=== PATIENT | female | born 1995 | race Caucasian/White ===

== ENCOUNTER 2021-11-22 12:47 | Emergency (ER) | payer OTHER, SELFPAY ==
[2021-11-22 13:20] VITALS: BP 130/79; PULSE 88; RESP 19; TEMP 37.3; O2SAT 100; BMI 25.8
[2021-11-22 13:41] LABS: Adenovirus,PCR Not Detected (NotDetected); Bordetella Pertussis Not Detected (NotDetected); Chlamydophila Pneumoniae, PCR Not Detected (NotDetected); Coronavirus 229E Not Detected (NotDetected); Coronavirus NL63 Not Detected (NotDetected); Coronavirus OC43 Not Detected (NotDetected); Coronovirus HKU1,PCR Not Detected (NotDetected); Human Metapneumovirus Not Detected (NotDetected); Influenza A, PCR Not Detected (NotDetected); Influenza AH1, 2009 Not Detected (NotDetected); Influenza AH1, PCR Not Detected (NotDetected); Influenza AH3,PCR Not Detected (NotDetected); Influenza B, PCR Not Detected (NotDetected); Mycoplasma Pneumoniae, PCR Not Detected (NotDetected); Parainfluenza 1, PCR Not Detected (NotDetected); Parainfluenza 2, PCR Not Detected (NotDetected); Parainfluenza 3, PCR Not Detected (NotDetected); Parainfluenza 4, PCR Not Detected (NotDetected); Respiratory Syncytial Virus Not Detected (NotDetected); Rhinovirus/Enterovirus Not Detected (NotDetected)
--- NOTE | 2021-11-22 13:46 | HMH.EDUTC ---
[facility] [place] Clinical Impression: Viral syndrome Disposition: Home, Self-Care Condition on Discharge: Good Instructions: DI for Viral Syndrome, DI for COVID-19 (Suspected or Confirmed ), Preventing the Spread of Coronavirus Discharge Instructions Additional Instructions: *Monitor Temp, Over the counter Motrin or Tylenol as directed/as needed Tylenol every 4 hours and Motrin every 6 hours (as long as your family doctor has told you that you can take it) for fever or pain. and straight to ER if unable to lower temp less than 101.0 after medication given *Warm salt water gargles may help to soothe the throat *Throat Lozenges *Warm fluids like tea with honey may help to soothe the throat *Sleep elevated *Humidifier/Vaporizer Follow up IMMEDIATELY for new or worsening symptoms or no Noticeable improvement over the next 48-72 hours. 911 for difficulty breathing or swallowing You were tested for today for COVID19 your test result should be back in the next 24-48 hours, you may check your results on the [facility] [place] [facility] Make sure to take your Vitamins Vit. C Vit D and Zinc if you can take them Referrals: Provider,Referral, [Primary Care Provider] - As needed Forms: Work/School Release Medical Decision Making - Patrick Inquiry Pt receiving controlled substance: No Patrick was queried for this patient: No Vital Signs: 11/22/21 13:20 Temperature 99.1 F Temperature Source Oral Pulse Rate [Right Brachial] 88 Respiratory Rate 19 Blood Pressure [Right Arm] 130/79 Blood Pressure Mean [Right Arm] 96 Blood Pressure Source [Right Arm] Automatic Cuff Blood Pressure Position [Right Arm] Sitting 02 Sat by Pulse Oximetry 100 Oxygen Delivery Method Room Air Orders (Tests/Meds): ED MEDICATIONS Discontinued Medications Generic Name Dose Route Start Last Admin Trade Name Freq PRN Reason Stop Dose Admin Acetaminophen 650 mg 11/22/21 13:58 Acetaminophen 325mg Tab PO 11/22/21 13:59 ONCE ONE ORDERS Category Date Time Status Full Resp Panel w/COVID ([facility]) Routine Lab 11/22/21 13:35 [place] [facility] [place] - General Stated complaint: FORBES, weakness, chills Time Seen by Provider: 11/22/21 13:47 Mode of Arrival: Ambulatory Source of Information: Patient Limitations: No Limitations Description of Symptoms (Recalled from Triage Doc. by RN): PATIENT C/O HEADACHE AND WEAKNESS SINCE THIS MORNING HEENT Symptoms (Recalled from RN notes): Yes Resp Symptoms (Recalled from RN notes): No Skin Symptoms (Recalled from RN notes): No MS Symptoms (Recalled from RN notes): No Functional Status (Recalled from RN notes): WNL - History of Present Illness Provider Complaint: Patient states that was recently around someone that was positive for COVID states that today she has been having headache, body aches, chills and feeling tired and achy so she came in to get tested - Related Data Previous Rx's Medication Instructions Recorded levonorgestrel-ethinyl estradiol 1 tab PO DAILY #84 tab 04/19/21 0.1 mg-20 mcg tablet Allergies Allergy/AdvReac Type Severity Reaction Status Date / Time No Known Allergies Allergy Verified 04/19/21 15:57 - Worker's Comp Is this a Worker's Comp case?: No [facility] History - Hepatitis A Screen Attestation statement:: This patient has been screened for Hepatitis A risk factors. I have reviewed the patient's past medical history: Yes Amputation: No Fractures: No Comment: wisdom teeth - Social History Smoking Status: Never smoker Alcohol Intake: never Alcohol Intake Frequency:: holidays/special occasions only Substance Use Type: denies use Occupational Status: other Family Hx:: No significant family history ROS Obtained: Yes All systems reviewed & no additional complaints, Yes Systems reviewed as appropriate & no additional complaints - Constitutional Constitutional: Reports system reviewed and no additional complaints, except as docu, Reports body ache, Reports
[2021-11-22 14:02] VITALS: BP 130/79; PULSE 88; RESP 19; TEMP 37.3; O2SAT 100
[2021-11-22 15:04] LABS: Coronavirus 19, PCR Detected (NotDetected)
== END 2021-11-22 14:05 | disposition home or self-care (01) ==
PROVIDERS: Emergency Provider Nurse Practitioner
DX: U07.1 COVID-19 (principal); R51.9 Headache, unspecified; R53.1 Weakness; R50.9 Fever, unspecified
CPT/HCPCS: 87581; 87632; 87798; 99212; C9803; G0463; U0003; U0005

== ENCOUNTER 2023-07-09 07:40 | Outpatient (CLI) | payer OTHER, SELFPAY ==
[2023-07-09 09:18] LABS: HCG,Quantitative 4651 mIU/ml (0-5.42)
[2023-07-10 08:21] LABS: Progesterone 16.6 ng/mL (.)
== END 2023-07-09 23:59 ==
PROVIDERS: Visit Provider Obstetrics & Gynecology
DX: Z32.00 Encounter for pregnancy test, result unknown (principal)
CPT/HCPCS: 36415; 84144; 84702

== ENCOUNTER 2023-08-01 17:12 | Outpatient (CLI) | payer OTHER, SELFPAY | END 2023-08-01 23:59 | LOC: LAB.DROPOF 17:12 | PROVIDERS: PCP Obstetrics & Gynecology; Visit Provider Obstetrics & Gynecology | DX: O26.891 Other specified pregnancy related conditions, first trimester (principal); Z3A.08 8 weeks gestation of pregnancy | CPT/HCPCS: 87086 ==

== ENCOUNTER 2023-08-09 08:39 | Outpatient (CLI) | payer OTHER, SELFPAY ==
[2023-08-09 10:39] LABS: Basophils # 0.1 K/mm3 (0-0.2); Basophils % 0.6 % (0.1-2.0); Eosinophils # 0.5 K/mm3 (0.0-0.4); Hematocrit 39.2 % (37.0-47.0); Hemoglobin 12.8 g/dL (12.2-16.2); Lymphocytes # 1.6 K/mm3 (0.7-4.5); Mean Corpuscular HGB Conc 32.7 g/dL (31.8-35.4); Mean Corpuscular Hemoglobin 31.7 pg (27.0-31.2); Mean Corpuscular Volume 96.7 fl (81-99); Mean Platelet Volume 8.7 fl (7.4-10.4); Monocytes # 0.5 K/mm3 (0.1-1.0); Monocytes % 4.5 % (1.7-9.3); Neutrophils # 7.8 K/mm3 (1.8-7.8); Neutrophils % 74.9 % (37.0-80.0); Platelet Count 267 K/mm3 (142-424); Red Blood Count 4.06 M/mm3 (4.20-5.40); Red Cell Distribution Width 13.4 % (11.5-17.5); White Blood Count 10.4 K/mm3 (4.8-10.8)
[2023-08-10 07:13] LABS: Rubella Antibodies, IgG 2.31 index (Immune >0.99)
[2023-08-10 14:59] LABS: Rapid Plasma Reagin Ab Titer Non Reactive titer (NonRea<1:1)
[2023-08-11 12:45] LABS: HIV Screen 4th Generation wRfx Non Reactive; Hepatitis B Surface Antigen Negative; Hepatitis C Antibody Non Reactive
== END 2023-08-09 23:59 ==
LOC: LAB 08:40
PROVIDERS: Visit Provider Obstetrics & Gynecology
DX: O26.891 Other specified pregnancy related conditions, first trimester (principal); Z3A.09 9 weeks gestation of pregnancy
CPT/HCPCS: 36415; 85025; 86593; 86703; 86762; 86850; 87340; 87380; G0432

== ENCOUNTER 2023-10-26 07:19 | Outpatient (CLI) | payer OTHER, SELFPAY ==
--- NOTE | 2023-10-26 07:20 | US_ITS ---
PROCEDURE: US OB /MATERNAL DETAIL CLINICAL INDICATION: US OB Complete-20wk+Anatomy Scan COMPARISON: No exams were available for comparison FINDINGS: Transabdominal sonographic images of the pelvis were obtained. From her established due date she is . Single viable intrauterine gestation. Initially breech position then turned to cephalic. Placenta: Posteriorplacenta grade 1. There is an average amount of fluid. The cervix appears satisfactory. Closed and measuring 3.11 cm in length. Complete survey performed and was unremarkable on the submitted images as in PACS. No discrete anomalies identified on survey imaging by technologist. Active fetus. Three-vessel cord with satisfactory umbilical cord insertion. 4- chamber heart noted. Situs, aortic arch, LVOT, RVOT, three-vessel view appear normal. Survey of brain & ventricles Unremarkable. Cerebellum, thalamus, choroid plexus, cisterna magna appear normal. There is a 0.82 cm choroid plexus cyst. Face and neck survey unremarkable. Profile, nasion, lips and nose appeared normal. Diaphragm and chest views unremarkable. Abdomen: Both kidneys noted . There is bilateral renal pelvis dilation. Left greater than right. Left measures 4.14 mm. Stomach and bladder noted and satisfactory. Spine: Survey of the spine satisfactory with no anomalies identified nor imaged. Cervical, thoracic, lower spine appear normal. Both arms and legs noted. Amniotic Fluid: Adequate. Measurements: Average ultrasound age 20weeks 6days. Estimated due date by ultrasound age 1003/08/2024. Estimated weight 388g BPD = 20weeks 3days HC = 20weeks 3days AC = 21weeks 1day FL = 21weeks 1day Growth Percentile= 58 Heart Rate = 150bpm Cerebellum = 20weeks 2days Humerus = 21weeks 1day HC/AC is 1.13 FL/BPD is 0.74 FL/AC is 0.22 IMPRESSION: 1. Viable fetus in the cephalic presentation with a posterior placenta grade 1. 2. The fluid is within normal limits. 3. There is an 8.2 mm choroid plexus cyst. 4. There is bilateral renal pelvis dilation with left greater than right. Left pelvis measures 4.14 mm. 5. The rest of the anatomical scan appears normal. 6. biometry is consistent with the dates. 7. Suggest maternal medicine consult. Dictated by: Armando Servin MD 10/26/2023 08:52 Armando Servin MD in [place] 10/26/2023 08:52
== END 2023-10-26 23:59 | disposition home or self-care (01) ==
LOC: RAD 07:20
PROVIDERS: PCP Obstetrics & Gynecology; Visit Provider Obstetrics & Gynecology
DX: Z36.3 Encounter for antenatal screening for malformations (principal); Z3A.20 20 weeks gestation of pregnancy; Z34.92 Encounter for supervision of normal pregnancy, unspecified, second trimester
CPT/HCPCS: 76811

== ENCOUNTER 2023-12-13 08:28 | Outpatient (CLI) | payer OTHER, SELFPAY ==
[2023-12-13 08:58] LABS: Basophils % 0.2 % (0.1-2.0); Eosinophils # 0.5 K/mm3 (0.0-0.4); Eosinophils % 3.6 % (0.1-12.0); Hematocrit 34.5 % (37.0-47.0); Hemoglobin 11.9 g/dL (12.2-16.2); Lymphocytes # 1.8 K/mm3 (0.7-4.5); Lymphocytes % 12.7 % (10-50); Mean Corpuscular HGB Conc 34.6 g/dL (31.8-35.4); Mean Corpuscular Hemoglobin 32.6 pg (27.0-31.2); Mean Corpuscular Volume 94.2 fl (81-99); Mean Platelet Volume 8.6 fl (7.4-10.4); Monocytes # 0.7 K/mm3 (0.1-1.0); Neutrophils # 10.8 K/mm3 (1.8-7.8); Neutrophils % 78.4 % (37.0-80.0); Platelet Count 276 K/mm3 (142-424); Red Blood Count 3.66 M/mm3 (4.20-5.40); Red Cell Distribution Width 14.2 % (11.5-17.5); White Blood Count 13.8 K/mm3 (4.8-10.8)
[2023-12-13 09:03] LABS: Glucose,Fasting 90 mg/dl (74-100)
[2023-12-13 11:20] LABS: Glucose 1 Hour 77 mg/dL (74-100)
== END 2023-12-13 23:59 | disposition home or self-care (01) ==
LOC: LAB 08:29
PROVIDERS: Visit Provider Obstetrics & Gynecology
DX: Z34.93 Encounter for supervision of normal pregnancy, unspecified, third trimester (principal); Z3A.28 28 weeks gestation of pregnancy
CPT/HCPCS: 36415; 82951; 85025

== ENCOUNTER 2024-01-25 22:48 | Emergency (ER) | payer OTHER, SELFPAY ==
[2024-01-25 22:51] VITALS: BP 132/81; PULSE 141; RESP 19; TEMP 37.5; O2SAT 98; BMI 29.6
--- NOTE | 2024-01-25 23:04 | ECG_ITS ---
APPROVED REPORT Exam: Resting ECG HR:134 bpm ECG Measurements Heart Rate 134 AXES [place] 132 P 56 QRSd 86 QRS 27 QT 331 T 34 QTc 410 Conclusion SINUS TACHYCARDIA NONSPECIFIC T-WAVE ABNORMALITY ABNORMAL RHYTHM ECG Isolated Q wave and T wave inversion in lead III, no reciprocal changes, no STEMI Electronically signed by : CHIP MANSFIELD, 01/26/2024 06:47:26
--- NOTE | 2024-01-25 23:05 | ED_ITS ---
Discharge Plan Disposition Patient Disposition: Home, Self-Care Condition: Fair Prescriptions Prescriptions: No Action Classic 28 mg iron- 800 mcg tablet PO DAILY Referrals Follow up/Referrals: Provider,Referral, [Primary Care Provider] - See instructions Activity Restrictions/Add. Instructions Additional Instructions/Restrictions: Drink plenty of water, if you develop fevers you can take Tylenol. Monitor your symptoms and movement closely. If you have any changes or any worsening, immediately return to the ER. Call Dr. Hsieh's office first thing Sunday morning for a follow-up appointment. Do not hesitate to return to the ER with any new, worsening, or otherwise concerning symptoms. Clinical Impressions Clinical Impression: Shortness of breath during , Tachycardia, COVID-19 affecting in third trimester Print Language Print Language: Croatian Discharge ED Provider: Morelia Eugene General Chief Complaint: Arrhythmia/Palpitations Stated Complaint: 33 weeks fast heart rate,SOA Time Seen by Provider: 01/25/24 23:03 History of Present Illness HPI narrative: 28-year-old female G1, P0 at 33 weeks presents to the ER for concerns of rapid heart rate, shortness of breath. Patient had sudden onset of symptoms earlier this evening. She denies any chest pain, headache, dizziness, nausea, vomiting, diarrhea, or any other associated symptoms. Patient thought her blood pressure felt high though she did not take it at home. She reports a healthy so far. Patient has felt active, normal movement since the time of symptom onset. She admits she used approximately 75 mg of caffeine earlier today which is a normal amount for her. She has not ever had any thyroid problems. Patient denies other associated symptoms. She reports she was ill approximately 2 weeks ago with a cough but this seems to have resolved. She states she has a mild cough today without other viral symptoms. Related Data Home Medications ?Medication ?Instructions ?Recorded ?Confirmed vits no.126-ferrous fum tab PO DAILY 08/01/23 01/16/24 28 mg iron-folic acid 800 mcg tablet (Classic ) Allergies Allergy/AdvReac Type Severity Reaction Status Date / Time No Known Allergies Allergy Verified 01/16/24 13:44 [facility] Disclaimer: The information contained in this section may have been updated after the patient was seen, as this information can be updated by other users. Medical History Dilation of renal pelvis of fetus Screening for genetic disease carrier status 08/20/23 [employer] carrier screen negative for 4 conditions tested: CF, Fragile X, SMA and DMD Nausea and vomiting in No significant past medical history Surgical History [place] teeth removed Family History Other Cancer Coronary artery disease Social History Smoking Status: Never smoker alcohol intake: current alcohol intake frequency: holidays/special occasions only substance use type: denies use current occupational status: employed Travel in the last 8 weeks: None ROS Obtained: Yes All systems reviewed & no additional complaints except as documented Positive ROS per HPI Physical Exam General General appearance: alert and in no apparent distress Head Head exam: atraumatic and normocephalic Eye Eye exam: Present PERRL and EOMI ENT ENT exam: Present mucous membranes moist Neck Neck exam: Present normal inspection and full ROM Chest Chest inspection: Present symmetric chest wall rise Respiratory Respiratory exam: Absent respiratory distress or stridor Cardiovascular Cardiovascular exam: Present normal rhythm and tachycardia Abdominal Exam Abdominal exam: Present soft and other (Obviously gravid abdomen); Absent distention, tenderness, guarding or rebound Extremities Exam Extremities exam: Present full ROM and normal capillary refill; Absent edema or calf tenderness Neurological Exam Neurological exam: Present alert and oriented X3; Absent motor sensory deficit Psychiatric Psychiatric exam: Present normal affect and normal mood Skin Skin exam: Present warm and dry HEART Score HEART Score HEART Score assessment performed?: Yes History (anamnesis): Slightly suspicious ECG: Non-specific disturbance Age: <45 years Risk factors: No known risk factors Troponin: </= normal limit HEART Score: 1 Procedures Miscellaneous Procedure Procedure Performed: Limited Cardiac Ultrasound Indication: Shortness of breath, tachycardia Identified cardiac views: Parasternal long axis, parasternal short axis, apical four-chamber Findings: Tachycardic cardiac activity without gross wall motion abnormality, no pericardial effusion, RV/LV size ratio less than 1, reassuring against right heart strain Impression: Tachycardic, no pericardial effusion, no right heart strain Images were saved to permanent archive The study was technically adequate CPT: 91676 This study was performed by me, and I personally interpreted all images/videos. Based on my clinical judgement, these images were adequate and did not necessitate further imaging. Limited OB ultrasound Indication: Known 33 weeks gestation Identified structures: Uterus Findings: Uterus: Definitive live IUP with good activity FHR: 160 Impression: -IUP: Present - heart rate: 160 -Good activity Images were saved to permanent archive The study was technically adequate CPT Transabdominal: 76153-28 This study was performed by me, and I personally interpreted all images/videos. Based on my clinical judgement, these images were adequate and did not necessitate further imaging. Critical Care Critical Care Time Critical Care Time: No Medical Decision Making Medical Records Medical records reviewed: Yes I reviewed the patient's medical records. MR Comment: Most recent OB note from Dr. Hsieh demonstrates clean urinalysis, anticipating vaginal delivery, A positive blood type. Patrick Inquiry Pt receiving controlled substance: No Vital Signs Vital Signs: 01/25/24 22:51 Temperature 99.5 F Temperature Source Oral Pulse Rate [Left Radial] 141 H Respiratory Rate 19 Blood Pressure [Right Arm] 132/81 Blood Pressure Mean [Right Arm] 98 Blood Pressure Source [Right Arm] Automatic Cuff Blood Pressure Position [Right Arm] Sitting 02 Sat by Pulse Oximetry 98 Oxygen Delivery Method Room Air Lab Data Labs: Lab Results 01/25/24 23:12: WBC 13.8 H, RBC 3.74 L, Hgb 11.5 L, Hct 36.3 L, MCV 97.1, MCH 30.8, MCHC 31.7 L, RDW 13.8, Plt Count 279, MPV 9.0, Neut % (Auto) 88.6 H, Lymph % (Auto) 4.2 L, Cloud % (Auto) 5.1, Eos % (Auto) 2.0, Baso % (Auto) 0.2, Neut # (Auto) 12.2 H, Lymph # (Auto) 0.6 L, Cloud # (Auto) 0.7, Eos # (Auto) 0.3, Baso # (Auto) 0.0, Total Counted 100, Neutrophils % (Manual) 88 H, Lymphocytes % (Manual) 2 L, Monocytes % (Manual) 7, Eosinophils % (Manual) 3, Platelet Estimate Normal, RBC Morphology Normal, D-Dimer 1.02 H, Sodium 132 L, Potassium 3.5, Chloride 107, Carbon Dioxide 19 L, Anion Gap 9.5, BUN 4 L, Creatinine 0.50 L, Estimated Creat Clear 238, Estimated GFR 149, Est GFR ( Amer) 180, G lucose 145 H, Calcium 8.5, Total Bilirubin 0.4, AST 33, ALT 34, Alkaline Phosphatase 135 H, Troponin I < 0.01, Total Protein 6.5, Albumin 3.6, Globulin 2.9, Albumin/Globulin Ratio 1.2, TSH 0.55, Free T4 0.62 L 01/25/24 23:19: SARS-CoV-2 (PCR) Detected A, Influenza A Untype (PCR) Not detected, Influenza Type B (PCR) Not detected 01/25/24 23:12 01/25/24 23:12 Response Orders (Tests/Meds): ED MEDICATIONS Discontinued Medications Generic Name Dose Route Start Last Admin Trade Name Freq PRN Reason Stop Dose Admin Lactated Ringer's 1,000 mls @ 999 mls/hr 01/25/24 23:04 01/25/24 23:12 Lactated Ringer's 1000 Ml Bag IV 01/26/24 00:04 999 mls/hr .Q1H1M ONE Administration ORDERS Category Date Time Status POCUS Point of Care (ER Only) Stat Exams 01/25/24 23:05 Ordered CBC w/Auto Diff [Complete Blood Count Auto Diff] Stat Lab 01/25/24 23:12 Completed CMP [Comprehensive Metabolic Panel] Stat Lab 01/25/24 23:12 Completed D-Dimer Stat Lab 01/25/24 23:12 Completed Free T4 (Free Thyroxine) Stat Lab 01/25/24 23:12 Completed Rapid PCR Covid and Flu A/B Stat Lab 01/25/24 23:19 Completed TSH [Thyroid Stimulating Hormone] Stat Lab 01/25/24 23:12 Completed Trop I [Troponin I] Stat Lab 01/25/24 23:12 Completed Troponin I Q3H Lab 01/26/24 02:15 Ordered Troponin I Q3H Lab 01/26/24 05:15 Ordered MDM Narrative Medical Decision Narrative: In summary, this 28-year-old female presents to the emergency department today with concerns of high heart rate, shortness of breath that was sudden onset in the setting of third trimester which is a comorbidity of current condition and increases risk of clot. On initial evaluation patient is hemodynamically stable though she is tachycardic, she is afebrile, well- appearing, no peripheral edema, no calf tenderness, redness, no history of blood clot, remainder of exam benign. Differential diagnosis includes but is not limited to arrhythmia, ACS, PE, electrolyte abnormality, thyroid abnormality. Based on these concerns, I ordered serum labs, cardiac workup, D-dimer. ECG personally interpreted demonstrates sinus tachycardia, rate 134, normal axis, normal [place] and QTc, patient does have Q waves as well as T wave inversion in lead III which is nonspecific but can indicate pulmonary abnormality including PE, no STEMI. Patient received IV fluids for treatment. Labs personally reviewed demonstrate mild leukocytosis, nonactionable CMP, patient has elevated D-dimer, undetectably low troponin. COVID-positive. Patient being and having a positive COVID test could falsely increase her D-dimer, however this does increase my suspicion for PE. On reassessment after receiving IV fluids her heart rate had improved to the 110s to 120s at rest. She also stated she felt better. With the elevated D-dimer patient should have imaging to rule out PE. I discussed this with Dr. Hsieh who recommended VQ scan or CTA PE. Since VQ scan is not available over the weekend, she believes the benefits of CTA PE outweigh the risks and recommended this. I discussed this with the patient and recommended CTA PE to rule out blood clot, patient is refusing all imaging including VQ scan. I discussed risks and benefits including the possibility of missing a life-threatening diagnosis such as pulmonary embolism. Patient understands but still refuses. I performed [id number] bedside ultrasound of the heart which did not demonstrate any obvious findings of right heart strain, patient also has a troponin that is reassuring against heart strain at this time. heart rate 160 on ultrasound. Patient wanted to be discharged. I discussed this case again with Dr. Hsieh. We again reviewed her labs, ultrasound, and with patient being positive for COVID though she would have like to have imaging to rule out PE, she believes patient symptoms are more likely to be due to being with COVID. Since the patient is otherwise stable, not hypoxic, good blood pressure, she is okay with the patient being discharged which I also agree is reasonable at this time. She recommends strict return precautions and close symptomatic monitoring at home including a movement which I clearly explained to the patient. Patient was given instructions on home symptomatic management, was encouraged to drink plenty of water, I also instructed her to very closely monitor her symptoms as well as movement and to return to the ER with any new, worsening, or otherwise concerning symptoms. She was encouraged to follow-up with OB as soon as possible as well. Patient indicated understanding to all written and verbal instructions and was discharged in stable condition.
[2024-01-25] MEDS: LACTATED RINGERS 1000ML 1,000 ML 999 ML IV (23:12)
[2024-01-25 23:21] LABS: Influenza A, PCR Not Detected (NotDetected); Influenza B, PCR Not Detected (NotDetected)
[2024-01-25 23:24] LABS: Basophils % 0.2 % (0.1-2.0); Eosinophils # 0.3 K/mm3 (0.0-0.4); Hematocrit 36.3 % (37.0-47.0); Hemoglobin 11.5 g/dL (12.2-16.2); Lymphocytes # 0.6 K/mm3 (0.7-4.5); Lymphocytes % 4.2 % (10-50); Mean Corpuscular HGB Conc 31.7 g/dL (31.8-35.4); Mean Corpuscular Hemoglobin 30.8 pg (27.0-31.2); Mean Corpuscular Volume 97.1 fl (81-99); Monocytes # 0.7 K/mm3 (0.1-1.0); Monocytes % 5.1 % (1.7-9.3); Neutrophils # 12.2 K/mm3 (1.8-7.8); Neutrophils % 88.6 % (37.0-80.0); Platelet Count 279 K/mm3 (142-424); Red Blood Count 3.74 M/mm3 (4.20-5.40); Red Cell Distribution Width 13.8 % (11.5-17.5); White Blood Count 13.8 K/mm3 (4.8-10.8)
[2024-01-25 23:25] LABS: MANUAL DIFFERENTIAL MANUAL DIFFERENTIAL (MANUAL DIFF)
[2024-01-25 23:38] LABS: Alanine Aminotransferase 34 U/L (12-78); Aspartate Amino Transferase 33 U/L (14-36); Blood Urea Nitrogen 4 mg/dl (7-17); Carbon Dioxide 19 mmol/L (22.0-30.0); Creatinine Clearance Estimated 238 mL/min (50-200); Estimated Glomerular Filt Rate 149 ml/min (>60); GFR (African American) 180 ML/MIN (>60)
[2024-01-25 23:39] LABS: Alkaline Phosphatase 135 U/L (38-126); Bilirubin,Total 0.4 mg/dl (0.2-1.3); Calcium 8.5 mg/dl (8.4-10.2); Glucose 145 mg/dl (74-100); Total Protein,Serum 6.5 g/dl (6.3-8.2)
[2024-01-25 23:42] LABS: Albumin Level 3.6 g/dl (3.5-5.0); Albumin/Globulin Ratio 1.2 (1.1-1.8); Anion Gap 9.5 mEq/L (5-15); Chloride 107 mmol/L (98-107); Globulin 2.9 g/dL (1.3-3.2); Potassium 3.5 mmoL/L (3.5-5.1); Sodium 132 mmol/L (136-145)
[2024-01-25 23:47] LABS: Coronavirus 19, PCR Detected (NotDetected)
[2024-01-25 23:47] LABS: Eosinophils % 3 % (0-3); Lymphocytes % 2 % (10-50); Monocytes % 7 % (2-9); Neutrophils % 88 % (42-76); Platelet Estimate Normal; RBC Morphology Normal; Total Cells Counted 100
[2024-01-25 23:57] LABS: D-Dimer 1.02 ug/mL (0.0-0.5)
[2024-01-26 00:02] LABS: Free T4 (Free Thyroxine) 0.62 ng/dl (0.78-2.19)
[2024-01-26 00:05] LABS: Troponin I < 0.01 ng/ml (0.00-0.034)
[2024-01-26 00:10] LABS: Thyroid Stimulating Hormone 0.55 uIU/mL (0.465-4.68)
--- NOTE | 2024-01-26 00:32 | PC.NURSE ---
PAGED [facility] [employer]
--- NOTE | 2024-01-26 00:35 | PC.NURSE ---
OB CALLED BACK AT THIS TIME.
[2024-01-26 01:01] VITALS: BP 115/67; PULSE 112; RESP 18; TEMP 36.5; O2SAT 97
== END 2024-01-26 01:06 | disposition home or self-care (01) ==
PROVIDERS: Emergency Provider Emergency Medicine
DX: O98.513 Other viral diseases complicating pregnancy, third trimester (principal); O99.513 Diseases of the respiratory system complicating pregnancy, third trimester; U07.1 COVID-19; R06.02 Shortness of breath; O99.413 Diseases of the circulatory system complicating pregnancy, third trimester; R00.0 Tachycardia, unspecified; Z3A.33 33 weeks gestation of pregnancy
CPT/HCPCS: 80050; 80053; 84439; 84443; 84484; 85007; 85025; 85378; 87636; 93005; 96360; 99285; J7120

== ENCOUNTER 2024-02-19 11:14 | Outpatient (CLI) | payer OTHER, SELFPAY | END 2024-02-19 23:59 | disposition home or self-care (01) | LOC: LAB.DROPOF 02-20 11:14 | PROVIDERS: PCP Obstetrics & Gynecology; Visit Provider Obstetrics & Gynecology | DX: Z34.90 Encounter for supervision of normal pregnancy, unspecified, unspecified trimester (principal) | CPT/HCPCS: 86403 ==

== ENCOUNTER 2024-03-10 13:23 | Inpatient (IN) | payer OTHER, SELFPAY ==
[2024-03-10 13:51] VITALS: BMI 32.1
[2024-03-10 14:00] VITALS: BP 135/92; PULSE 91; RESP 18; TEMP 36.9; O2SAT 98; BMI 32.1
[2024-03-10 14:20] LABS: Basophils % 0.1 % (0.1-2.0); Eosinophils # 0.3 K/mm3 (0.0-0.4); Eosinophils % 2.8 % (0.1-12.0); Hematocrit 33.1 % (37.0-47.0); Hemoglobin 11.2 g/dL (12.2-16.2); Lymphocytes # 1.3 K/mm3 (0.7-4.5); Mean Corpuscular HGB Conc 33.7 g/dL (31.8-35.4); Mean Corpuscular Hemoglobin 31.5 pg (27.0-31.2); Mean Corpuscular Volume 93.3 fl (81-99); Mean Platelet Volume 9.3 fl (7.4-10.4); Monocytes # 0.5 K/mm3 (0.1-1.0); Monocytes % 4.6 % (1.7-9.3); Neutrophils # 8.1 K/mm3 (1.8-7.8); Neutrophils % 79.5 % (37.0-80.0); Platelet Count 257 K/mm3 (142-424); Red Blood Count 3.55 M/mm3 (4.20-5.40); White Blood Count 10.2 K/mm3 (4.8-10.8)
[2024-03-10] MEDS: miSOPROStol 100MCG TABLET 50 MCG PO ×2 (14:52→20:57)
[2024-03-10 15:42] LABS: Alanine Aminotransferase 25 U/L (12-78); Albumin Level 3.2 g/dl (3.5-5.0); Albumin/Globulin Ratio 1.3 (1.1-1.8); Alkaline Phosphatase 174 U/L (38-126); Anion Gap 10.3 mEq/L (5-15); Aspartate Amino Transferase 39 U/L (14-36); Bilirubin,Total 0.6 mg/dl (0.2-1.3); Blood Urea Nitrogen 8 mg/dl (7-17); Carbon Dioxide 17 mmol/L (22.0-30.0); Chloride 110 mmol/L (98-107); Creatinine Clearance Estimated 255 mL/min (50-200); Estimated Glomerular Filt Rate 148 ml/min (>60); GFR (African American) 179 ML/MIN (>60); Globulin 2.5 g/dL (1.3-3.2); Glucose 103 mg/dl (74-100); Potassium 4.3 mmoL/L (3.5-5.1); Sodium 133 mmol/L (136-145); Total Protein,Serum 5.7 g/dl (6.3-8.2)
[2024-03-10] MEDS: BUTORPHANOL TARTRATE 1 MG/ML VIAL IV (22:47)
[2024-03-10 22:54] LABS: Creatinine,Urine Random 51 mg/dL (Not Estab.)
[2024-03-11] MEDS: LACTATED RINGERS 1000ML 1,000 ML 250 ML IV ×2 (02:01→07:23)
--- NOTE | 2024-03-11 02:58 | P.PNANES_ITS ---
[facility] Disclaimer: The information contained in this section may have been updated after the patient was seen, as this information can be updated by other users. Medical History Dilation of renal pelvis of fetus Screening for genetic disease carrier status 08/20/23 [employer] carrier screen negative for 4 conditions tested: CF, Fragile X, SMA and DMD Nausea and vomiting in No significant past medical history Surgical History [place] teeth removed Family History Other Cancer Coronary artery disease Social History Smoking Status: Never smoker alcohol intake: current alcohol intake frequency: holidays/special occasions only substance use type: denies use current occupational status: employed Travel in the last 8 weeks: None [facility] Anesthesia Checklist Patient Identification Patient Identification: Arm Band Structural Data Admitted From: Inpatient Planned Operative Procedure/s: Labor Epidural Consent for Planned Operative Procedure(s) Verified: Yes Verified Documents: Surgical Consent and History and Physical Additional verifications Anesthesia Reactions: No Airway Assessment Dentition: Good Dentition Neurological Assessment Level of Consciousness: Awake, Alert and Appropriate Anesthesia Plan Anesthesia Risk discussed: Yes Anesthesia Plan: Verified ASA Class: II Anesthesia Type: Epidural
[2024-03-11] MEDS: ONDANSETRON 4MG/2ML VIAL 4 MG IV (03:06)
[2024-03-11] MEDS: ePHEDrine SULF 50MG/ML VIAL 10 MG IV (03:07)
--- NOTE | 2024-03-11 07:15 | EXP.OB.APHP ---
OB - H&P: HPI Antepartum History of Present Illness Chief complaint: Scheduled elective induction of labor History of present illness: Mrs Argelia Espinal is a 29 yo at 40w2d who presents to [facility] L&D for scheduled elective induction of labor. No leakage of fluid or vaginal bleeding. Baby is active. She has had good care. GBS negative. History of Present Criteria for establishing EDC:: LMP confirmed by 1st trimester US care: good care Obstetrical complications: none Medical complications: none Labs Blood type: A (+) positive Rubella: immune RPR/VDRL: nonreactive GBS status: negative HBsAG: negative [facility] Disclaimer: The information contained in this section may have been updated after the patient was seen, as this information can be updated by other users. Medical History (Updated 03/11/24 @ 07:23 by Kaitlin Hsieh DO) Encounter for elective induction of labor Post-term , 40-42 weeks of gestation Dilation of renal pelvis of fetus Screening for genetic disease carrier status Nausea and vomiting in No significant past medical history Surgical History [place] teeth removed Family History Other Cancer Coronary artery disease Social History Smoking Status: Never smoker alcohol intake: current alcohol intake frequency: holidays/special occasions only substance use type: denies use current occupational status: employed Travel in the last 8 weeks: None Other Medical History Have you received the Flu Vaccine for this season: No Have you received the Pneumonia Vaccine: No Review of Systems Review of Systems Review of systems:: pertinent systems reviewed and negative unless documented below Meds Home Medications and Allergies Home Medications ?Medication ?Instructions ?Recorded ?Confirmed ?Type vits no.126-ferrous fum 1 tab PO DAILY 08/01/23 03/10/24 History 28 mg iron-folic acid 800 mcg tablet (Classic ) New Prescriptions to Start Prescriptions: Allergies Allergy/AdvReac Type Severity Reaction Status Date / Time No Known Allergies Allergy Verified 03/10/24 08:52 OB - H&P: Exam Physical Exam Vital signs: Temp Pulse Resp BP Pulse Ox O2 Del Method 98.5 F 91 H 18 135/92 H 98 Room Air 03/10/24 14:00 03/10/24 14:00 03/10/24 14:00 03/10/24 14:00 03/10/24 14:00 03/10/24 14:00 Constitutional no acute distress and cooperative Routine HEENT Exam Head: Present normocephalic and atraumatic Eye: Absent conjunctivae pink ENT: Present mucous membranes moist Routine Neck Exam Present full ROM Routine Respiratory Exam Present CTA bilaterally and normal respiratory effort Routine Cardiovascular Exam Present RRR Routine Abdominal Exam Present soft (Gravid); Absent tenderness Routine Rectal Exam Patient deferred: visual exam Routine Exam External: Present normal urethra appearance; Absent erythema, tenderness or lacerations Routine Extremities Exam Present edema (+2 bilateral lower extremity edema) and full ROM; Absent calf tenderness Routine Neurological Exam Present alert, moving all extremities and normal speech Routine Psychiatric Exam Present normal affect and cooperative Detailed Labor and Delivery Exam Dilation (cm): 5 Effacement (%): 70 Cervix position: mid station: -3 Consistency: medium Membranes: spontaneously ruptured Amniotic fluid: clear Baseline heart rate: 130 monitor accelerations: Present 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 (11-25) OB - Results Labs Labs: Short CBC 03/10/24 Range/Units 14:05 WBC 10.2 (4.8-10.8) K/mm3 Hgb 11.2 L (12.2-16.2) g/dL Hct 33.1 L (37.0-47.0) % Plt Count 257 (142-424) K/mm3 BMP 03/10/24 14:05 Sodium 133 L Potassium 4.3 Chloride 110 H Carbon Dioxide 17 L BUN 8 Creatinine 0.50 L Glucose 103 H Calcium 9.0 Liver Function 03/10/24 Range/Units 14:05 Total Bilirubin 0.6 (0.2-1.3) mg/dl AST 39 H (14-36) U/L ALT 25 (12-78) U/L Alkaline Phosphatase 174 H (38-126) U/L Albumin 3.2 L (3.5-5.0) g/dl OB - A/P Antepartum (1) Post-term , 40-42 weeks of gestation: Status: Acute (2) Encounter for elective induction of labor: Status: Acute Additional Plan Planning to breastfeed?: Yes Additional Information:: Admit to L&D for induction of labor with Cytotec followed by Pitocin GBS negative Close monitoring
[2024-03-11] MEDS: METOCLOPRAMIDE HCL 10MG/2ML VIAL 10 MG IVP (07:20)
[2024-03-11] MEDS: DEXTROSE 5%-LACTATED RINGERS 1,000 ML 125 ML IV (07:22)
[2024-03-11] MEDS: OXYTOCIN/RINGERS LACTATE 30 UNITS/500 ML BAG IV (07:22)
[2024-03-11] MEDS: OXYTOCIN/RINGERS LACTATE 30 UNITS/500 ML BAG 40 UNITS IV (09:46)
--- NOTE | 2024-03-11 09:53 | EXP.DN ---
Delivery Note Delivery Date:: 03/11/24 Delivery Time:: 09:21 Anesthesia Type: Epidural Was labor medically induced?: No Induction method: per misoprostol protocol Gestational age (weeks): 40 delivered prior to 39 weeks?: No Gender: Male at 1 minute: 8 at 5 minutes: 9 Delivery Procedure:: Mom complete with epidural. Pushed for approximately 6 minutes. Head delivered spontaneously over intact perineum in PHILIP position. No nuchal cord. Anterior shoulder delivered spontaneously. Posterior shoulder and remainder of body delivered spontaneously. Baby placed on maternal abdomen, mouth and nares bulb suctioned, warmed/dried and stimulated. Delayed cord clamping was performed for 60 seconds. Cord was clamped and cut by father of baby. Cord blood was obtained. Placenta delivered spontaneously and intact. Right labial laceration and first degree perineal laceration repaired with 3-0 Vicryl. Hemostasis noted. Mom and baby were skin to skin and doing well after delivery. Live male baby (baby's name is Asa) APGARs 8 (1 min), 9 (5 min) EBL 200 mL Laceration:: labial Placental Delivery Description: Spontaneous
[2024-03-11] MEDS: ACETAMINOPHEN 500MG TAB 1000 MG PO ×2 (11:07→21:43)
[2024-03-11] MEDS: IBUPROFEN 400 MG TABLET 800 MG PO ×2 (11:07→21:43)
[2024-03-11 11:15] LABS: Rapid Plasma Reagin Ab Titer Non Reactive titer (NonRea<1:1)
[2024-03-11] MEDS: BENZOCAINE-MENTHOL SPRAY 56GM CAN TP (15:13)
[2024-03-11] MEDS: WITCH HAZEL 40 PADS/BOX 1 EACH TP (15:14)
[2024-03-12 07:11] LABS: Basophils % 0.2 % (0.1-2.0); Eosinophils # 0.3 K/mm3 (0.0-0.4); Eosinophils % 1.8 % (0.1-12.0); Lymphocytes # 1.8 K/mm3 (0.7-4.5); Lymphocytes % 11.3 % (10-50); Mean Corpuscular HGB Conc 33.4 g/dL (31.8-35.4); Mean Corpuscular Hemoglobin 31.7 pg (27.0-31.2); Mean Corpuscular Volume 94.7 fl (81-99); Mean Platelet Volume 9.1 fl (7.4-10.4); Monocytes # 0.7 K/mm3 (0.1-1.0); Monocytes % 4.5 % (1.7-9.3); Neutrophils # 13.3 K/mm3 (1.8-7.8); Neutrophils % 82.3 % (37.0-80.0); Platelet Count 266 K/mm3 (142-424); Red Blood Count 3.49 M/mm3 (4.20-5.40); Red Cell Distribution Width 14.1 % (11.5-17.5); White Blood Count 16.2 K/mm3 (4.8-10.8)
[2024-03-12 07:13] LABS: MANUAL DIFFERENTIAL MANUAL DIFFERENTIAL (MANUAL DIFF)
[2024-03-12 08:16] VITALS: BP 137/61; PULSE 90; RESP 18; TEMP 36.9; O2SAT 97
[2024-03-12] MEDS: SENNA 8.6MG TABLET 8.6 MG PO (08:21)
[2024-03-12 09:09] LABS: Eosinophils % 1 % (0-3); Lymphocytes % 17 % (10-50); Monocytes % 1 % (2-9); Neutrophils % 81 % (42-76); Platelet Estimate Normal; RBC Morphology Normal; Total Cells Counted 100
[2024-03-12] MEDS: ACETAMINOPHEN 500MG TAB 1000 MG PO (10:09)
[2024-03-12] MEDS: IBUPROFEN 400 MG TABLET 800 MG PO (10:10)
--- NOTE | 2024-03-12 13:20 | P.DS_ITS ---
General Admission date:: 03/10/24 Discharge date: 03/12/24 HPI HPI HPI: PPD # 1 s/p Feeling well. Pain controlled. Breast and formula feeding. Lochia is appropriate. Voiding without difficulty and passing flatus. Tolerating regular diet. Denies fever/chills, chest pain and shortness of breath. No headaches, vision changes, lightheadedness/dizziness. She admits to lower extremity swelling. No calf pain. Ambulating well ad deny. Hospital Course Hospital Course Hospital Course: Mrs Argelia Espinal is a 29 yo at 40w2d who presents to [facility] L[facility] for scheduled elective induction of labor. No leakage of fluid or vaginal bleeding. Baby is active. She has had good care. GBS negative. She underwent induction of labor with Cytotec followed by Pitocin. She had a normal spontaneous vaginal delivery on 03/11/24 at 0921. She delivered a live male baby, Asa, weighing 7 lb 12 oz. AGPARs 8 (1 min), 9 (5 min). EBL 200 mL. She did well . Pain controlled. Breast and formula feeding. Light lochia. Voiding without difficulty and passing flatus. Tolerating regular diet. Denies fever/chills, chest pain and shortness of breath. No headaches, dizziness/lightheadedness or vision changes. Vital signs stable, afebrile. Heart regular rate and rhythm. Lungs clear to auscultation. Abdomen soft, nontender. She had +2 bilateral lower extremity swelling; no calf tenderness. Ambulating well ad deny. Normal hospital course. She was discharged to home on POD # 1 with instructions to follow-up in the office in 2 weeks or sooner if needed. Exam Data for Last 24 hours Vital signs and Labs for Last 24 Hours: Temp Pulse Resp BP Pulse Ox O2 Del Method 98.5 F 90 18 137/61 97 Room Air 03/12/24 08:16 03/12/24 08:16 03/12/24 08:16 03/12/24 08:16 03/12/24 08:16 03/12/24 08:16 Laboratory Results - last 24 hr 03/12/24 06:35: WBC 16.2 H D, RBC 3.49 L, Hgb 11.0 L, Hct 33.0 L, MCV 94.7, MCH 31.7 H, MCHC 33.4, RDW 14.1, Plt Count 266, MPV 9.1, Neut % (Auto) 82.3 H, Lymph % (Auto) 11.3, Mitchell % (Auto) 4.5, Eos % (Auto) 1.8, Baso % (Auto) 0.2, Neut # (Auto) 13.3 H, Lymph # (Auto) 1.8, Mitchell # (Auto) 0.7, Eos # (Auto) 0.3, Baso # (Auto) 0.0, Total Counted 100, Neutrophils % (Manual) 81 H, Lymphocytes % (Manual) 17, Monocytes % (Manual) 1 L, Eosinophils % (Manual) 1, Platelet Estimate Normal, RBC Morphology Normal I & O for Last 24 hours: Intake & Output 03/09/24 03/10/24 03/11/24 03/12/24 23:59 23:59 23:59 23:59 Weight 211 lb Constitutional Constitutional: no acute distress and cooperative *Routine HEENT Exam Head: Present normocephalic and atraumatic Eye: Absent conjunctivae pink ENT: Present mucous membranes moist *Routine Neck Exam Neck: Present full ROM *Routine Respiratory Exam Respiratory: Present CTA bilaterally and normal respiratory effort *Routine Cardiovascular Exam Cardiovascular: Present RRR *Routine Abdominal Exam Abdominal: Present soft; Absent tenderness or distended Comments: Uterine fundus firm and below umbilicus *Routine Rectal Exam Patient deferred: visual exam *Routine Exam Patient deferred: external exam *Routine Extremities Exam Extremities: Present edema (+2 bilateral lower extremity edema) and full ROM; Absent calf tenderness *Routine Neurological Exam Neurological: Present alert, moving all extremities and normal speech Routine Psychiatric Exam Psychiatric: Present normal affect and cooperative Results Data Completed and Pending Labs on day of discharge: Labs from last 24 hours 03/12/24 06:35 WBC 16.2 H D RBC 3.49 L Hgb 11.0 L Hct 33.0 L MCV 94.7 MCH 31.7 H MCHC 33.4 RDW 14.1 Plt Count 266 MPV 9.1 Neut % (Auto) 82.3 H Lymph % (Auto) 11.3 Mitchell % (Auto) 4.5 Eos % (Auto) 1.8 Baso % (Auto) 0.2 Neut # (Auto) 13.3 H Lymph # (Auto) 1.8 Mitchell # (Auto) 0.7 Eos # (Auto) 0.3 Baso # (Auto) 0.0 Total Counted 100 Neutrophils % (Manual) 81 H Lymphocytes % (Manual) 17 Monocytes % (Manual) 1 L Eosinophils % (Manual) 1 Platelet Estimate Normal RBC Morphology Normal DS: Diagnosis Discharge Diagnosis (1) Status post normal vaginal delivery: Status: Acute (2) Post-term , 40-42 weeks of gestation: Status: Acute Code(s): O48.0 - Post-term (3) Encounter for elective induction of labor: Status: Acute Code(s): Z34.90 - Encounter for supervision of normal , unspecified, unspecified trimester Meds Home Medications and Allergies Home Medications ?Medication ?Instructions ?Recorded ?Confirmed ?Type vits no.126-ferrous fum 1 tab PO DAILY 08/01/23 03/10/24 History 28 mg iron-folic acid 800 mcg tablet (Classic ) ibuprofen 800 mg tablet 800 mg PO Q8H PRN pain #20 tabs 03/12/24 Rx New Prescriptions to Start Prescriptions: Kaitlin Jay Allergies Allergy/AdvReac Type Severity Reaction Status Date / Time No Known Allergies Allergy Verified 03/10/24 08:52 Discharge Plan Disposition Patient Disposition: Home, Self-Care Condition: Good Discharge Order Discharge Orders: Discharge Order (Routine); Ordered 03/12/24 Ordered By: Kaitlin Hsieh Follow up Plan Follow up with: Kaitlin Hsieh DO [Staff Physician] - 03/25/24 1:30 pm Prescriptions/Medication Reconciliation: New ibuprofen 800 mg tablet 800 mg PO Q8H PRN (Reason: pain) Qty: 20 0RF Continued Classic 28 mg iron- 800 mcg tablet 1 tab PO DAILY Problem Reconciliation Problems Reviewed?: Yes Patient Discharge Instructions ACTIVITY: Limited activity DIET: continue same diet and regular diet Additional Instructions: Congratulations!! Discharge: 1. Take 800 mg Ibuprofen every 8 hours as needed for pain. You can also take 500-1000 mg of Tylenol in between doses, every 6-8 hours. 2. Nothing in the vagina for 6 weeks - no intercourse, douching or tampons. No tub baths/hot tubs or swimming pools 3. Reasons to return to L&D or call On-Call doctor - fever (greater than 100.4) - heavy vaginal bleeding (soaking through 1 pad in less than 2 hours) - vaginal discharge (malodorous and/or purulent) - severe headaches not resolved by medication or rest and leg tenderness/edema 4. depression/blues - Normal to feel anxious/overwhelmed for first 2 weeks - Talk to your doctor if: severe anxiety, trouble bonding with baby, withdrawing from other family members, thoughts of harming yourself or others Kaitlin Hsieh DO [facility] [phone] Patient Instructions: Depression, Hemorrhage, DI for Labor and Delivery, Vaginal , DI for Pre-eclampsia, [facility] Post Discharge Instructions Print Language: Montenegrin Providers Primary Care Provider: Provider,Referral Admit Provider: Kaitlin Hsieh Attending Provider: Kaitlin Hsieh
[2024-03-12] MEDS: WITCH HAZEL 40 PADS/BOX 1 EACH TP (16:10)
== END 2024-03-12 17:00 | disposition home or self-care (01) | DRG 807 ==
PROVIDERS: Admitting Provider Obstetrics & Gynecology; Visit Provider Obstetrics & Gynecology
DX: O70.0 First degree perineal laceration during delivery (principal); Z37.0 Single live birth; Z3A.40 40 weeks gestation of pregnancy
CPT/HCPCS: 36415; 59025; 80053; 82570; 84156; 85007; 85025; 86593; 86850; 94761; G0283; J0595; J2405; J2765; J3010; J7120

== ENCOUNTER 2024-07-16 15:02 | Outpatient (CLI) | payer OTHER, SELFPAY ==
--- NOTE | 2024-07-16 15:05 | XR_ITS ---
FINAL REPORT CLINICAL HISTORY: Right Thumb Pain worsening since december; right pain worse than left COMPARISON: None FINDINGS: RIGHT HAND: Three views show no evidence of acute displaced fracture or dislocation of the visualized bony architecture. The joint spaces appear normal. IMPRESSION: Unremarkable exam. Reviewed, Interpreted and Dictated by Jorge Luis Babcock MD Transcribed by Dione Freire Authenticated and [facility]
--- NOTE | 2024-07-16 15:05 | XR_ITS ---
FINAL REPORT CLINICAL HISTORY: left thumb pain worsening since december COMPARISON: None FINDINGS: LEFT HAND: Three views show no evidence of acute displaced fracture or dislocation of the visualized bony architecture. The joint spaces appear normal. IMPRESSION: Unremarkable exam. Reviewed, Interpreted and Dictated by Jorge Luis Babcock MD Transcribed by Dione Freire Authenticated and [facility]
== END 2024-07-16 23:59 | disposition home or self-care (01) ==
LOC: RAD 15:03
PROVIDERS: Visit Provider Physician Assistant Surgical
DX: R29.898 Other symptoms and signs involving the musculoskeletal system (principal); M79.644 Pain in right finger(s); M79.645 Pain in left finger(s)
CPT/HCPCS: 73130

== ENCOUNTER 2024-07-31 15:26 | Outpatient (CLI) | payer OTHER, SELFPAY ==
[2024-07-31 15:49] LABS: Basophils % 0.4 % (0.1-2.0); Eosinophils # 0.9 K/mm3 (0.0-0.4); Eosinophils % 13.9 % (0.1-12.0); Hematocrit 37.2 % (37.0-47.0); Hemoglobin 12.1 g/dL (12.2-16.2); Lymphocytes # 1.4 K/mm3 (0.7-4.5); Lymphocytes % 20.1 % (10-50); Mean Corpuscular HGB Conc 32.5 g/dL (31.8-35.4); Mean Corpuscular Hemoglobin 29.4 pg (27.0-31.2); Mean Corpuscular Volume 90.5 fl (81-99); Mean Platelet Volume 10.4 fl (7.4-10.4); Monocytes # 0.7 K/mm3 (0.1-1.0); Monocytes % 10.3 % (1.7-9.3); Neutrophils # 3.7 K/mm3 (1.8-7.8); Neutrophils % 55.2 % (37.0-80.0); Platelet Count 284 K/mm3 (142-424); Red Blood Count 4.11 M/mm3 (4.20-5.40); Red Cell Distribution Width 13.2 % (11.5-17.5); White Blood Count 6.7 K/mm3 (4.8-10.8)
[2024-07-31 16:16] LABS: Alanine Aminotransferase 25 U/L (12-78); Albumin Level 4.2 g/dl (3.5-5.0); Albumin/Globulin Ratio 2.1 (1.1-1.8); Alkaline Phosphatase 95 U/L (38-126); Amylase 51 U/L (30-110); Aspartate Amino Transferase 25 U/L (14-36); Bilirubin,Total 0.2 mg/dl (0.2-1.3); Blood Urea Nitrogen 10 mg/dl (7-17); Calcium 9.1 mg/dl (8.4-10.2); Carbon Dioxide 27 mmol/L (22.0-30.0); Chloride 106 mmol/L (98-107); Estimated Glomerular Filt Rate 120 ml/min (>60); GFR (African American) 145 ML/MIN (>60); Glucose 110 mg/dl (74-100); Lipase 107 U/L (23-300); Sodium 141 mmol/L (136-145); Total Protein,Serum 6.2 g/dl (6.3-8.2)
== END 2024-07-31 23:59 | disposition home or self-care (01) ==
LOC: LAB 15:26
PROVIDERS: PCP Family Medicine; Visit Provider Family Medicine
DX: Z00.00 Encounter for general adult medical examination without abnormal findings (principal); R10.9 Unspecified abdominal pain
CPT/HCPCS: 36415; 80053; 82150; 83690; 85025

== ENCOUNTER 2024-08-04 07:17 | Outpatient (CLI) | payer OTHER, SELFPAY ==
--- NOTE | 2024-08-04 07:19 | US_ITS ---
FINAL REPORT CLINICAL HISTORY: abd pain COMPARISON: None FINDINGS: Sonographic images of the right upper quadrant were obtained. The pancreas is partially obscured.The liver has an unremarkable appearance. Gallstones are noted in the gallbladder. There is nonspecific mild gallbladder wall thickening measuring up to 4 mm. There is no evidence of biliary ductal dilatation.The common duct measures 2 mm. Limited images of the right kidney are unremarkable. IMPRESSION: Cholelithiasis without biliary obstruction. Nonspecific mild gallbladder wall thickening. Reviewed, Interpreted and Dictated by Jorge Luis Babcock MD Transcribed by Annabel Rosas Authenticated and [facility]
== END 2024-08-04 23:59 | disposition home or self-care (01) ==
LOC: RAD 07:18
PROVIDERS: PCP Family Medicine; Visit Provider Family Medicine
DX: K80.20 Calculus of gallbladder without cholecystitis without obstruction (principal)
CPT/HCPCS: 76705